=== PATIENT | female | born 1995 | race Caucasian/White ===

== ENCOUNTER → 2022-07-01 | Outpatient (REF) | LOC: M LABSMTC 11:58 | PROVIDERS: ATTEND Family Medicine | DX: Z11.52 Encounter for screening for COVID-19 (principal) ==

== ENCOUNTER → 2022-10-07 | Outpatient (REF) | LOC: M EMP 08:20 | PROVIDERS: ATTEND Family Medicine | DX: Z11.52 Encounter for screening for COVID-19 (principal) ==

== ENCOUNTER → 2022-10-10 | Outpatient (REF) ==
[2022-10-10 14:48] LABS: RSV AMPLIFICATION NEGATIVE (NEGATIVE)
== END ==
LOC: M EMP 11:38
PROVIDERS: ATTEND Family Medicine
DX: Z20.828 Contact with and (suspected) exposure to other viral communicable diseases (principal)

== ENCOUNTER → 2023-03-30 | Outpatient (REF) ==
[2023-03-30 12:46] LABS: RSV AMPLIFICATION NEGATIVE (NEGATIVE)
== END ==
LOC: M EMP 08:39
PROVIDERS: ATTEND Family Medicine
DX: Z11.52 Encounter for screening for COVID-19 (principal)

== ENCOUNTER → 2023-04-19 | Outpatient (REF) ==
[2023-04-19 11:14] LABS: RSV AMPLIFICATION NEGATIVE (NEGATIVE)
== END ==
LOC: M EMP 09:36
PROVIDERS: ATTEND Family Medicine
DX: Z11.52 Encounter for screening for COVID-19 (principal)

== ENCOUNTER → 2023-04-22 | Outpatient (REF) ==
[2023-04-22 17:16] LABS: RSV AMPLIFICATION NEGATIVE (NEGATIVE)
== END ==
LOC: M EMP 13:20
PROVIDERS: ATTEND Family Medicine
DX: Z11.52 Encounter for screening for COVID-19 (principal)

== ENCOUNTER 2023-05-24 08:47 | Emergency (ER) | payer OTHER, SELFPAY ==
[~2023-05-24] VITALS: Ht 157.5 cm; Wt 53.0 kg
[2023-05-24] MEDS ORDERED: ONDANSETRON 4MG TAB PO ONE (09:20)
[2023-05-24] MEDS ORDERED: ONDANSETRON 4MG ORAL DISINTEGRATING TAB PO ONE (09:25)
[2023-05-24] MEDS ORDERED: ONDA4TAB6 PO (10:56)
[2023-05-24 11:02] VITALS: BP 117/68; TEMP 97.5; O2SAT 98
== END 2023-05-24 11:08 | disposition home or self-care (01) ==
LOC: M ED 08:47
DX: S09.90XA Unspecified injury of head, initial encounter (principal); Y04.8XXA Assault by other bodily force, initial encounter; Y92.9 Unspecified place or not applicable; Y93.9 Activity, unspecified; Y99.0 Civilian activity done for income or pay; Z87.891 Personal history of nicotine dependence

== ENCOUNTER → 2023-07-28 | Outpatient (REF) ==
[~2023-07-28] MED LIST: ONDA4TAB6 PO
== END ==
LOC: M EMP 13:17
PROVIDERS: ATTEND Family Medicine
DX: Z01.89 Encounter for other specified special examinations (principal)